=== PATIENT | female | born 1990 | race Caucasian/White ===

== ENCOUNTER 2018-10-01 20:01 | Emergency (ER) | payer OTHER ==
--- NOTE | 2018-10-01 20:59 | RADIOLOGY REPORT (SQ) ---
2 VIEWS OF LEFT KNEE HISTORY: Joint pain. COMPARISON: None. FINDINGS: The patella appears subluxed laterally. No definite fracture is seen the joint spaces are preserved. There is a small knee joint effusion. IMPRESSION: Findings suggesting lateral patellar subluxation/dislocation with a small knee effusion, which may represent transient patellar dislocation. Consider MRI for complete evaluation.
[2018-10-01] MEDS ORDERED: KETAMINE HCL INJ 500 MG/10 ML VIAL IM ONE (22:11)
[2018-10-01] MEDS ORDERED: MIDAZOLAM 2 MG/2 ML INJ ONE (22:55)
[2018-10-01] MEDS ORDERED: KETAMINE HCL INJ 500 MG/10 ML VIAL IV ONE (23:03)
[2018-10-01] MEDS ORDERED: MIDAZOLAM 2 MG/2 ML INJ IV ONE (23:05)
--- NOTE | 2018-10-02 00:47 | ER Document Report ---
ED General - General Chief Complaint: Knee Injury Stated Complaint: POSSIBLE KNEE DISLOCATION Time Seen by Provider: 10/01/18 20:14 Primary Care Provider: RADHA ANGULO DO [ACTIVE STAFF] - Follow up as needed TRAVEL OUTSIDE OF THE [place] IN LAST 30 DAYS: No - HPI Notes: Patient is a 28-year-old female who presents to the emergency department for evaluation of a left knee injury. Evidently there was a wet spot on her kitchen floor and she slipped. She states she fell backwards on her back, but also somehow struck her left knee. She is brought in with a left knee to form in [employer]. She denies any trauma to the head or losing consciousness. She has no neck or back pain. She denies any numbness or tingling. - Related Data Allergies/Adverse Reactions: diphenhydramine [From Benadryl] Allergy (Verified 10/01/18 22:05) divalproex sodium [From Depakote] Allergy (Verified 10/01/18 22:05) promethazine [From Phenergan] Allergy (Verified 10/01/18 22:05) MSG Allergy (Uncoded 10/01/18 22:05) Past Medical History - General Information source: Patient - Social History Smoking Status: Smoker,Current Status Unk Chew tobacco use (# tins/day): No - pt reports vaping Family History: Reviewed & Not Pertinent Patient has suicidal ideation: No Patient has homicidal ideation: No - Past Medical History Cardiac Medical History: Denies: Hx Hypertension - pre-eclampsia during Neurological Medical History: Reports: Hx Migraine, Hx Seizures - pain, light, stress induced Renal/ Medical History: Denies: Hx Peritoneal Dialysis Psychiatric Medical History: Reports: Hx Post Traumatic Stress Disorder Review of Systems - Review of Systems Constitutional: No symptoms reported EENT: No symptoms reported Cardiovascular: No symptoms reported Respiratory: No symptoms reported Gastrointestinal: No symptoms reported Genitourinary: No symptoms reported Musculoskeletal: See HPI Skin: No symptoms reported Neurological/Psychological: No symptoms reported Physical Exam - Vital signs Vitals: Temp Resp BP Pulse Ox 98.8 F 31 H 143/93 H 98 10/01/18 20:11 10/01/18 20:11 10/01/18 20:11 10/01/18 20:11 - Notes Notes: 8-year-old morbidly obese female, appears stated age in a mild to moderate distress. Head is normocephalic any traumatic. Pupils are equal, round, reactive to light. Oral mucosa is moist. Heart regular rate and rhythm, lungs are clear to auscultate bilaterally. Abdomen soft, nontender, normoactive bowel sounds. Examination left lower extremity healed obvious deformity about the knee with lateral subluxation of the patella. Neurovascularly intact distally. She does have a small abrasion noted over the patella itself without any active bleeding. Course - Re-evaluation Re-evalutation: 10/02/18 00:44 Patient presents emergency department for evaluation. X-ray was obtained which revealed lateral subluxation of the knee. I did attempt to reduce this patellar subluxation with IM ketamine only, this was unsuccessful. IV ketamine was administered and reduction was successful. Please see separate procedure note. Patient tolerated this well, was placed in a knee immobilizer following. She is neurovascular intact following. We will discharge her with follow-up with orthopedics. She is to return to the emergency department with worsening or new concerning symptoms of any sort. - Vital Signs Vital signs: Temp Pulse Resp BP Pulse Ox 98.6 F 98 18 148/76 H 98 10/02/18 02:07 10/02/18 02:07 10/02/18 02:07 10/02/18 02:07 10/02/18 02:07 - Diagnostic Test Radiology reviewed: Reports reviewed Radiology results interpreted by me: 10/02/18 00:44 Knee X-Ray 10/01/18 20:07 IMPRESSION: Findings suggesting lateral patellar subluxation/dislocation with a small knee effusion, which may represent transient patellar dislocation. Consider MRI for complete evaluation. Procedures - Conscious Sedation Conscious sedation Time started: 22:51 Consent obtained: Yes Prior complications: Procedural sedation Pt with a mild systemic disease.: P2. - ASA Classification. Airway Evaluation: Obese Mallampati Classification: Class 2 Used during procedure: Suction available, Pulse ox on pt., monitoring analyst on pt. Medications administered: Versed, Ketamine Reversal agents: None I personally performed/intraservice time: Sedation, Procedure, 30 min or less Notes: Procedure was explained in great detail. Questions were sought and answered. Consent was signed and placed on the chart. Initially patient was administered 400 mg of IM ketamine and 2 mg of nasal Versed at 2251. Attempts were made to reduce the subluxed patella. The patient was not adequately sedated, cannot relax, and this was unsuccessful. At that time decision was made to establish IV and the patient was administered 250 mg of IV ketamine at 2320. Once adequate sedation was achieved, medial pressure was used to reduce the patella. She was placed in a knee immobilizer. She was neurovascularly intact following. She was stable on the monitor, maintain oxygenation without difficulty. Discharge - Discharge Clinical Impression: Lateral subluxation of left patella Qualifiers: Encounter type: initial encounter Qualified Code(s): S83.012A - Lateral subluxation of left patella, initial encounter Condition: Stable Disposition: HOME, SELF-CARE Instructions: Dislocation of the Patella ([facility]), Knee Immobilizing Splint ([facility]) Additional Instructions: Knee immobilizer. Take ibuprofen as directed, with food. Follow-up with our on -call orthopedist, or the orthopedist of your choice, in 1 to 2 weeks. Return to the emergency department with worsening or new concerning symptoms. Prescriptions: RX: Ibuprofen [Ibu] 800 mg PO TID #21 tablet Referrals: RADHA ANGULO DO [ACTIVE STAFF] - Follow up as needed
[2018-10-02] MEDS ORDERED: ONDANSETRON HCL INJ/PF 4 MG/2 ML SDV IV ONE (01:13)
[2018-10-02 02:08] VITALS: BP 148/76
== END 2018-10-02 02:08 | disposition home or self-care (01) ==
LOC: ER 20:01
DX: S83.012A Lateral subluxation of left patella, initial encounter (principal); W01.0XXA Fall on same level from slipping, tripping and stumbling without subsequent striking against object, initial encounter; Y92.000 Kitchen of unspecified non-institutional (private) residence as the place of occurrence of the external cause; F17.200 Nicotine dependence, unspecified, uncomplicated
CPT/HCPCS: 99283; 99153; 99152; 96374; 73560; 27560; L1830; J2250; J3490; J2405

== ENCOUNTER 2019-06-27 02:47 | Emergency (ER) | payer OTHER ==
[2019-06-27 03:09] VITALS: BP 128/82
[2019-06-27] MEDS ORDERED: ACETAMINOPHEN 325 MG TABLET PO ONE (03:19)
--- NOTE | 2019-06-27 05:00 | RADIOLOGY REPORT (SQ) ---
EXAM DESCRIPTION: XR ANKLE 3 OR MORE VIEWS COMPLETED DATE/TME: 06/27/2019 03:20 CLINICAL HISTORY: 28 years, Female, swelling tenderness COMPARISON: None. NUMBER OF VIEWS: The 3 TECHNIQUE: Left LIMITATIONS: None. FINDINGS: Soft tissue swelling. Old posttraumatic change to the ankle. An acute displaced fracture is not seen. Alignment is anatomic. Osteoarthritis IMPRESSION: Soft tissue swelling. Old posttraumatic change. No acute displaced fracture is seen copyright 2010 [employer]- All Rights Reserved
== END 2019-06-27 06:19 | disposition left against medical advice (07) ==
LOC: ER 02:47
DX: Z53.21 Procedure and treatment not carried out due to patient leaving prior to being seen by health care provider (principal)